=== PATIENT | male | born 1945 | race Caucasian/White ===

== ENCOUNTER → 2018-02-08 | Outpatient (CLI) | payer OTHER | LOC: CIMAGING 08:50 | PROVIDERS: ATTEND Family Medicine | DX: R19.01 Right upper quadrant abdominal swelling, mass and lump (principal) | CPT/HCPCS: 76705-PO ==

== ENCOUNTER → 2018-02-15 | Outpatient (CLI) | payer OTHER | LOC: CIMAGING 13:02 | PROVIDERS: ATTEND Family Medicine | DX: K42.9 Umbilical hernia without obstruction or gangrene (principal) | CPT/HCPCS: 74150-PO ==

== ENCOUNTER → 2018-06-26 | Outpatient (CLI) | payer OTHER | LOC: EMCIMAGING 06-25 08:46 → FIMAGING 09:11 | PROVIDERS: ATTEND Family Medicine | DX: M75.121 Complete rotator cuff tear or rupture of right shoulder, not specified as traumatic (principal); M24.811 Other specific joint derangements of right shoulder, not elsewhere classified | CPT/HCPCS: 73221-PN ==